=== PATIENT | male | born 1935 | race Hispanic/Latino ===

== ENCOUNTER 2023-04-12 10:44 | Emergency (ER) | payer OTHER, SELFPAY ==
[2023-04-12 10:57] VITALS: BP 122/71
--- NOTE | 2023-04-12 12:42 | ED.GENMED ---
History of Present Illness
General
Chief Complaint: Flank Pain
Source: patient and family
Exam Limitations: none
Time Seen by Provider: 04/12/23 12:29
Nursing documentation reviewed up to this point in time: agreed with
Travel History
Have you had any contact with someone who has COVID-19?: No
Do you have any symptoms of coronavirus? Fever > 100 degrees, chills, cough, shortness of breath, sore throat, loss of taste or smell, muscle aches, or headache?: No
History of Present Illness
History of Present Illness:
87-year male presents to the ER complaining of right-sided back pain. He reports that started 1 week ago. He denies any injury at all. He does report however it is worse with sitting standing changing positions walking up and down steps. It is
relieved at rest. He has been taking ibuprofen which has improved his symptoms. Family brought patient here to the ER. He lives with his daughter. Family also concerned because patient does have a history of kidney stones and patient reports
this feels a little similar to his kidney stone in the past.
He denies any fever chills nausea vomiting. Denies any difficulty urinating.
Review of Systems
Review of Systems
Allergies reviewed?: Yes
Other source history: family
All Other Systems: ROS reviewed and negative except as documented in HPI and ROS
Constitutional: Reports no symptoms; Denies fever, fatigue or chills
Respiratory: Reports no symptoms
Cardiac: Reports no symptoms
ABD/GI: Reports no symptoms
: Reports flank pain; Denies dysuria, frequency, incontinence, difficulty voiding or urgency
Musculoskeletal: Reports back pain (right lower back pain )
Skin: Reports no symptoms
Neurological: Reports no symptoms
Psychiatric: Reports no symptoms
Phy Exam
General Physical Exam
General Presentation: no apparent distress
General age: appears stated age
General Skin: warm and dry
General Habitus: normal
General Mental: alert
General Hydration: appears well hydrated
Neurological Exam
Neurological Exam: alert and oriented x3
Musculoskeletal Exam
Musculoskeletal Exam: full ROM
Skin Exam
Skin Exam: normal color and warm/dry
Psychiatric Exam
Psychiatric Exam: normal mood/affect
Course
Orders/Labs/Results
Orders:
Orders
04/12/23 12:39
IV Insert/Care/Rem.- Treatment PRN
Acetaminophen [Tylenol] 1,000 mg PO NOW STA
Lidocaine [Lidocaine 4% Patch] 1 patch TOPICAL NOW STA
04/12/23 12:40
CT Abd/pel Without Iv Or Oral Urgent
Comment:
Reason For Exam: right flank /back pain
04/12/23 13:21
Basic Metabolic Panel Urgent
Complete Blood Count/With Diff Urgent
Urinalysis Reflex To Culture Urgent
Date Specimen was Collected: 04/12/23
Time Specimen was Collected: 13:19
Urine Microscopic Reflex Cult Urgent
04/12/23 15:48
Tramadol HCl [Ultram] 50 mg PO NOW STA
Abnormal Lab Results
04/12/23
13:21
Absolute Neuts (auto) 7.5 H 10^3/uL
(1.4-6.5)
Absolute Monos (auto) 0.8 H 10^3/uL
(0.1-0.6)
Lymphocytes % 20.1 L %
(20.5-51.1)
BUN 26 H mg/dl
(9-20)
Urine Ketones Trace A
(Negative)
Urine Bilirubin 1+ A
(Negative)
Leukocyte Esterase Rfl Trace A
(Negative)
Urine Bacteria (Reflex) Few A
(Negative)
04/12/23 13:21
04/12/23 13:21
Vital Signs
Initial and Last Documented VS:
Initial Vital Signs
Temp Pulse Resp BP Pulse Ox
97.8 F 96 20 122/71 95
04/12/23 10:57 04/12/23 10:57 04/12/23 10:57 04/12/23 10:57 04/12/23 10:57
Last Documented Vital Signs
Temp Pulse Resp BP Pulse Ox
97.8 F 60 16 132/63 95
04/12/23 10:57 04/12/23 16:15 04/12/23 16:15 04/12/23 16:15 04/12/23 16:15
Motorcycle Maker consulted with Physician
Motorcycle Maker consulted with physician?: Yes
Name of Physician Consulted: [place]
MDM/Problems Addressed
Differential Diagnosis Includes:
Not limited muscular back pain, renal colic
MDM/Problems Addressed:
87-year-old male presented with right back pain. This presents more muscular but he does have a history of kidney stones and was concerned this was a kidney stone. He presents awake alert nontoxic , BUN minimally elevated however he is drinking
fluids. Urinalysis negative for blood negative for infection. CAT scan negative for renal colic /hydronephrosis. Incidentally there is a 1.5 cm hypodensity left renal lesion which could be complex cyst or solid renal neoplasm I did review this
with family recommending MRI.
Patient was given Tylenol lidocaine patch and 1 dose of tramadol and monitored here. Patient is able to walk without difficulty feeling much better, likely muscular will DC with tramadol with close outpatient follow-up. Family at bedside.
Chronic conditions affecting care:
hx of kidney stone in past
*Critical Care Note
Total Time (30-74mins, 75-104mins- exclusive of procedures): Not Applicable
ED Attending Note
-
Portions of this chart may have been created with voice recognition software.� Occasional wrong word or��sound alike� substitutions may have occurred due to the inherent limitations of voice recognition software.
Discharge Plan
Departure
Patient Disposition: Home (Routine Discharge)
Date of Disposition: 04/12/23
Time of Disposition: 16:57
Patient with high blood pressure during this ER visit?: No
Condition: Fair
Covid-19: Not Applicable
Discharge Problem:
Back pain
Instructions: Back Pain
Prescriptions:
New
tramadol 50 mg tablet
50 mg PO Q8H PRN (Reason: Pain) Qty: 10 0RF
lidocaine 5 % adhesive patch,medicated
1 patch topical DAILY Qty: 15 0RF
Rx Instructions:
remove after 12 hrs
Referrals:
John Stringer MD [Family Provider] -
Activity Restrictions/Additional Instructions:
Patient may take Tylenol 650 mg every 4-6 hours however a prescription for tramadol(pain medication) was sent to pharmacy. Take only as directed this may cause drowsiness. Also a prescription for lidocaine patch was sent to pharmacy. Remove after
12 hours. Follow-up closely with family doctor the next 2 days for reevaluation of your symptoms as well as your CAT scan findings. You will need additional follow-up for your CAT scan findings. Return if any worsening of symptoms.
Interventions
Interventions:
*Risk Screen - Suicide Last Done: 04/12/23 13:30
*General Assessment Last Done: 04/12/23 12:50
*Neglect/Abuse Screening Last Done: 04/12/23 13:30
ED- Fall Risk Assessment Last Done: 04/12/23 12:50
*ED COVID-19 Vaccine History Last Done: 04/12/23 12:50
YL-Vzluwa-Wrhyrcbqtw Assessment Last Done: 04/12/23 12:50
ED-Male Genitourinary Assessment Last Done: 04/12/23 12:50
[2023-04-12 12:50] VITALS: BMI 32.7
[2023-04-12 13:25] VITALS: BP 111/66
[2023-04-12] MEDS: TYLENOL 1000 MG PO (13:29)
[2023-04-12] MEDS: LIDOCAINE 4% PATCH 1 PATCH TOPICAL (13:29)
[2023-04-12 13:40] LABS: % Basophils 0.7 % (0-2); % Eosinophils 1.5 % (0-6); % Immature Granulocytes 0.3 % (0-0.5); % Lymphocytes 20.1 % (20.5-51.1); % Monocytes 7.8 % (1.7-9.3); % Neutrophils 69.6 % (42.2-75.2); Absolute Basophils 0.1 10^3/uL (0-0.2); Absolute Eosinophils 0.2 10^3/uL (0-0.7); Absolute Lymphocytes 2.2 10^3/uL (1.2-3.4); Absolute Monocytes 0.8 10^3/uL (0.1-0.6); Absolute Neutrophils 7.5 10^3/uL (1.4-6.5); Hematocrit 41.9 % (39.0-52.0); Hemoglobin 14.9 g/dL (13.0-18.0); Mean Corp Hgb Conc. 35.6 g/dL (33.0-37.0); Mean Corpuscular Hgb 30.5 pg (27.0-31.0); Mean Corpuscular Volume 85.7 fL (80.0-94.0); Mean Platelet Volume 10.3 fL (7.4-10.4); Nucleated Red Blood Cells % 0 % (-); Platelet Count 239 10^3/uL (130-400); Red Blood Cell Count 4.89 10^6/uL (4.70-6.10); Red Cell Dist. Width 13.5 % (11.5-14.5); White Blood Cell Count 10.8 10^3/uL (4.8-10.8)
[2023-04-12 13:53] LABS: Urine Albumin Trace (Neg - Trace); Urine Bilirubin 1+ (Negative); Urine Character Clear (Clear); Urine Color Yellow; Urine Glucose Negative (Negative); Urine Ketone Trace (Negative); Urine Leukocyte Trace (Negative); Urine Nitrite Negative (Negative); Urine Occult Blood Negative (Negative); Urine Urobilinogen Negative (Neg - 1+)
[2023-04-12 13:58] LABS: Blood Urea Nitrogen 26 mg/dl (9-20); Calcium 9.3 mg/dl (8.4-10.2); Carbon Dioxide 25 mmol/L (22-30); Chloride 106 mmol/L (98-107); Estimated Creatinine Clearance 61 ml/min; Glucose 99 mg/dl (70-99); eGFR > 60.00
[2023-04-12 14:06] LABS: Sodium 138 mmol/L (135-145)
[2023-04-12 14:38] LABS: Urine Bacteria Few (Negative); Urine Red Blood Cell 0-2 /HPF (0-2)
[2023-04-12 16:15] VITALS: BP 132/63
[2023-04-12] MEDS: ULTRAM 50 MG PO (16:16)
[2023-04-12 17:32] VITALS: BP 130/65
--- NOTE | 2023-04-12 17:57 | EDRN ---
Reviewed discharge instructions with patient. Verbalized understanding. Taken to lobby in wheelchair.
[2023-04-12 18:03] VITALS: BP 130/65
== END 2023-04-12 17:45 | disposition home or self-care (01) ==
LOC: EMR 10:44
PROVIDERS: Nurse Practitioner; EMERGENCY PHYSICIAN Emergency Medicine; FAMILY PHYSICIAN Family Medicine
DX: M54.9 Dorsalgia, unspecified (principal)
CPT/HCPCS: 99284; 74176; 80048; 81003; 81015; 85025

== ENCOUNTER → 2023-06-06 08:36 | Outpatient (REF) | payer OTHER, SELFPAY | LOC: MRI 08:36 | PROVIDERS: ATTENDING PHYSICIAN Family Medicine | DX: R93.429 Abnormal radiologic findings on diagnostic imaging of unspecified kidney (principal) | CPT/HCPCS: 74181 ==

== ENCOUNTER → 2024-01-06 08:30 | Outpatient (REF) | payer OTHER, SELFPAY ==
[2024-01-06 09:58] LABS: % Basophils 0.8 % (0-2); % Eosinophils 4.2 % (0-6); % Immature Granulocytes 0.2 % (0-0.5); % Lymphocytes 32.5 % (20.5-51.1); % Monocytes 9.1 % (1.7-9.3); % Neutrophils 53.2 % (42.2-75.2); Absolute Basophils 0.1 10^3/uL (0-0.2); Absolute Eosinophils 0.4 10^3/uL (0-0.7); Absolute Lymphocytes 2.9 10^3/uL (1.2-3.4); Absolute Monocytes 0.8 10^3/uL (0.1-0.6); Absolute Neutrophils 4.7 10^3/uL (1.4-6.5); Hematocrit 44.3 % (39.0-52.0); Hemoglobin 15.3 g/dL (13.0-18.0); Mean Corp Hgb Conc. 34.5 g/dL (33.0-37.0); Mean Corpuscular Hgb 30.8 pg (27.0-31.0); Mean Corpuscular Volume 89.1 fL (80.0-94.0); Mean Platelet Volume 10.7 fL (7.4-10.4); Nucleated Red Blood Cells % 0 % (-); Platelet Count 207 10^3/uL (130-400); Red Blood Cell Count 4.97 10^6/uL (4.70-6.10); Red Cell Dist. Width 13.8 % (11.5-14.5); White Blood Cell Count 8.9 10^3/uL (4.8-10.8)
[2024-01-06 10:23] LABS: ALT (SGPT) 43 U/L (0-50); AST (SGOT) 36 U/L (17-59); Albumin 4.3 g/dl (3.5-5.0); Alkaline Phosphatase 99 U/L (38-126); Blood Urea Nitrogen 33 mg/dl (9-20); Calcium 9.5 mg/dl (8.4-10.2); Carbon Dioxide 29 mmol/L (22-30); Chloride 102 mmol/L (98-107); Glucose 125 mg/dl (70-99); HDL Cholesterol 38 mg/dl; LDL Cholesterol, Calculated 105 mg/dl; Sodium 144 mmol/L (135-145); Total Bilirubin 0.5 mg/dl (0.2-1.3); Total Cholesterol 178 mg/dl (50-199); Total Protein 7.7 g/dl (6.3-8.2); Triglyceride 179 mg/dl (10-149); Very Low Density Lipoprotein 35 mg/dl (0-30); eGFR > 60.00
[2024-01-06 10:53] LABS: TSH Reflex To Free T4 1.73 uIU/ml (0.47-4.68)
== END ==
LOC: HWLAB 08:30
PROVIDERS: ATTENDING PHYSICIAN Family Medicine
DX: E78.2 Mixed hyperlipidemia (principal); I10 Essential (primary) hypertension; R73.03 Prediabetes
CPT/HCPCS: 36415; 80053; 80061; 83036; 84443; 85025

== ENCOUNTER → 2025-01-03 08:34 | Outpatient (REF) | payer OTHER, SELFPAY ==
[2025-01-03 11:40] LABS: Hematocrit 42.8 % (39.0-52.0); Hemoglobin 14.6 g/dL (13.0-18.0); Mean Corp Hgb Conc. 34.1 g/dL (33.0-37.0); Mean Corpuscular Volume 88.1 fL (80.0-94.0); Nucleated Red Blood Cells % 0 % (-); Platelet Count 145 10^3/uL (130-400); Red Cell Dist. Width 14.0 % (11.5-14.5)
[2025-01-03 12:02] LABS: ALT (SGPT) 44 U/L (0-50); AST (SGOT) 42 U/L (17-59); Albumin 4.1 g/dl (3.5-5.0); Alkaline Phosphatase 111 U/L (38-126); Blood Urea Nitrogen 22 mg/dl (9-20); Calcium 9.5 mg/dl (8.4-10.2); Carbon Dioxide 29 mmol/L (22-30); Chloride 105 mmol/L (98-107); Glucose 134 mg/dl (70-99); HDL Cholesterol 28 mg/dl; LDL Cholesterol, Calculated 89 mg/dl; Potassium 3.7 mmol/L (3.5-5.1); Sodium 139 mmol/L (135-145); Total Protein 7.7 g/dl (6.3-8.2); Very Low Density Lipoprotein 53 mg/dl (0-30); eGFR > 60.00
[2025-01-03 12:08] LABS: Glycohemoglobin (HgbA1c) 6.5 % (4.0-5.6)
[2025-01-03 12:22] LABS: TSH 1.79 uIU/ml (0.47-4.68)
== END ==
LOC: HWLAB 08:34
PROVIDERS: ATTENDING PHYSICIAN Family Medicine
DX: E66.09 Other obesity due to excess calories (principal); E78.2 Mixed hyperlipidemia; G25.0 Essential tremor; I10 Essential (primary) hypertension; R73.03 Prediabetes
CPT/HCPCS: 36415; 80053; 80061; 83036; 84443; 85025